=== PATIENT | male | born 1940 | race Caucasian/White ===

== ENCOUNTER 2017-09-26 07:01 | Day surgery (SDC) | payer MEDICARE, OTHER ==
[2017-09-26] MEDS ORDERED: Sodium Chloride 0.9% 1,000 ML IV SCH (07:30)
[2017-09-26] MEDS ORDERED: fentaNYL 100 MCG/2 ML SDV ONE (08:19)
[2017-09-26] MEDS ORDERED: Propofol 200 MG/20 ML SDV ONE (08:19)
[2017-09-26] MEDS ORDERED: Atropine 0.4 MG/ML SDV ONE (08:55)
[2017-09-26] MEDS ORDERED: Glycopyrrolate 0.2 MG/ML 5 ML MDV ONE (08:55)
--- NOTE | 2017-09-26 13:56 | OR ---
DATE OF PROCEDURE: 09/26/2017 PROCEDURE: Colonoscopy. FINDINGS: Normal colonoscopy. PREOPERATIVE DIAGNOSIS: History of colon polyps/screening. POSTOPERATIVE DIAGNOSIS: History of colon polyps/screening. RISKS: Risks, benefits, alternatives, and limitations including but not limited to infection, bleeding, and perforation were explained to the patient and wished to proceed. PROCEDURE IN DETAIL: The patient was placed in a left lateral decubitus position. Digital rectal exam was performed without abnormality. The scope was introduced and advanced atraumatically to the ileocecal valve. The scope was brought back to the ascending, transverse, descending colon and retroflexed. No evidence of old or new blood. No diverticulosis. No masses. No colitis. Mario Milian MD /[id number]
== END 2017-09-26 12:19 | disposition home or self-care (01) ==
LOC: JP.SDS 07:01
PROVIDERS: ATTEND Surgery
DX: Z12.11 Encounter for screening for malignant neoplasm of colon (principal); I10 Essential (primary) hypertension; E78.00 Pure hypercholesterolemia, unspecified; Z98.890 Other specified postprocedural states; Z86.010 Personal history of colon polyps; Z91.030 Bee allergy status
CPT/HCPCS: G0105; J0461; J2704; J3010; J7040

== ENCOUNTER 2021-08-14 12:11 | Emergency (ER) | payer MEDICARE, OTHER ==
[2021-08-14] MEDS ORDERED: Sodium Chloride 0.9% 1,000 ML IV SCH (13:15)
--- NOTE | 2021-08-14 13:16 | EDM.PDOC ---
ED HPI GENERAL MEDICAL PROBLEM - General Chief Complaint: Cardiovascular Problem Stated Complaint: FAINTED ON GOLF COURSE Time Seen by Provider: 08/14/21 12:33 Source of Information: Reports: Patient History Limitations: Reports: No Limitations - History of Present Illness INITIAL COMMENTS - FREE TEXT/NARRATIVE: Sudden [place] No warning. Spontaneously awoke soon after hitting ground. Episode was witnessed by friends and report of seizure. No tongue biting or incontinence. No similar episodes in past. Had "anxiety"episodes this am described as lightheadedness that last seconds. No prior anxiety problems. No chest pain or dyspnea. No N/V, sweating, chills or fever. On BP meds- lisinopril and HLD med statin. - Related Data Allergies Allergy/AdvReac Type Severity Reaction Status Date / Time bee venom protein (honey bee) Allergy Itching Verified 08/14/21 13:05 Home Meds: Home Meds Lisinopril 10 mg PO BEDTIME 09/24/17 [History] Multivit-Minerals/FA/Lycopene [One Daily Men's Health Tablet] 1 tab PO DAILY 09/24/17 [History] Simvastatin [Zocor] 80 mg PO BEDTIME 09/24/17 [History] Past Medical History Cardiovascular History: Reports: Heart Murmur, High Cholesterol, Hypertension Gastrointestinal History: Reports: Colon Polyp Oncologic (Cancer) History: Reports: Basal Cell Carcinoma Dermatologic History: Reports: None - Infectious Disease History Infectious Disease History: Reports: Chicken Pox, Measles, Mumps, Rubella - Past Surgical History HEENT Surgical History: Reports: Other (See Below) Other HEENT Surgeries/Procedures: growth taken off vocal cord Cardiovascular Surgical History: Reports: None GI Surgical History: Reports: Colonoscopy, Polypectomy Oncologic Surgical History: Reports: None Dermatological Surgical History: Reports: Skin Biopsy Social & Family History - Tobacco Use Tobacco Use Status *Q: Never Tobacco User - Caffeine Use Caffeine Use: Reports: None - Alcohol Use Days Per Week of Alcohol Use: 7 Number of Drinks Per Day: 2 Total Drinks Per Week: 14 - Recreational Drug Use Recreational Drug Use: No ED ROS GENERAL - Review of Systems Review Of Systems: See Below Constitutional: Denies: Fever, Chills, Diaphoresis HEENT: Reports: No Symptoms Respiratory: Denies: Shortness of Breath, Cough Cardiovascular: Reports: Lightheadedness, Syncope Endocrine: Denies: Polydypsia, Polyuria : Reports: No Symptoms Musculoskeletal: Reports: No Symptoms Skin: Reports: No Symptoms Neurological: Reports: Dizziness, Syncope. Denies: Headache, Seizure Psychiatric: Reports: Anxiety ED EXAM, GENERAL - Physical Exam Exam: See Below Exam Limited By: No Limitations General Appearance: Alert, WD/WN, No Apparent Distress Ears: Normal External Exam, Normal Canal, Normal TMs Nose: Normal Mucosa Throat/Mouth: Normal Inspection, Normal Lips, Normal Oropharynx Head: Normocephalic Neck: Normal Inspection, Non-Tender, Full Range of Motion. No: Lymphadenopathy (R), Lymphadenopathy (L) Respiratory/Chest: No Respiratory Distress, Lungs Clear, Normal Breath Sounds Cardiovascular: Normal Peripheral Pulses GI/Abdominal: Normal Bowel Sounds, Non-Tender Neurological: Alert, Oriented, Normal Cognition, No Motor/Sensory Deficits Psychiatric: Normal Affect, Normal Mood #1 Interpretation EKG Date: 08/14/21 Time: 13:45 Rhythm: Other (sinus neha) Rate (Beats/Min): 51 Tyro: LAD-Left Tyro Deviation P-Wave: Present QRS: Normal ST-T: Normal QT: Normal Comparison: NA - No Prior EKG (sinus arrest) EKG Interpretation Comments: Sinus neha Course - Vital Signs Text/Narrative:: The patient was evaluated. VSS. NAD. Exam= systolic heart murmur Labs = Normal CBC, BMP, LFT, BNP, Trop, and negative Covid. IMaging= normal CXR and head NCCT EKG = sinus neha, and LAD no acute changes. While in the ER, the patient experience symptoms (lightheadedness) and bradycardia at 20-30 BPM. The patient was given a liter of NS while in the ED. Discussed with Dr Zurita at [facility] who accepted the patient. Transport by [facility]. VSS. Patient and his agree with plan. Last Recorded V/S: Last Vital Signs Temp 36.2 C 08/14/21 13:05 Pulse 48 L 08/14/21 14:22 Resp 10 L 08/14/21 14:22 BP 145/75 H 08/14/21 14:22 Pulse Ox 100 08/14/21 14:22 Orthostatic Blood Pressure [ 163/97 Standing] Orthostatic Blood Pressure [ 154/86 Sitting] Orthostatic Blood Pressure [ 160/82 Supine] - Orders/Labs/Meds Orders: Active Orders 24 hr Category Date Time Status Sodium Chloride 0.9% [Normal Saline] 1,000 ml Med 08/14/21 13:15 Active IV ASDIRECTED EKG 12 Lead [EK] Stat Ther 08/14/21 13:03 Ordered EKG 12 Lead [EK] Stat Ther 08/14/21 13:40 Ordered Medication Orders Sodium Chloride (Normal Saline) 1,000 mls @ 500 mls/hr IV ASDIRECTED RUSS Last Admin: 08/14/21 13:18 Dose: 500 mls/hr Documented by: JOSE MANUEL Labs: Laboratory Tests 08/14/21 08/14/21 08/14/21 Range/Units 13:03 13:03 13:04 WBC 7.7 (4.5-11.0) K/uL RBC 3.90 L (4.30-5.90) M/uL Hgb 12.7 (12.0-15.0) g/dL Hct 38.5 L (40.0-54.0) % MCV 99 H (80-98) fL MCH 33 H (27-31) pg MCHC 33 (32-36) % Plt Count 257 (150-400) K/uL Neut % (Auto) 82.1 H (36-66) % Lymph % (Auto) 12.2 L (24-44) % Harmon % (Auto) 4.8 (2-6) % Eos % (Auto) 0.6 L (2-4) % Baso % (Auto) 0.3 (0-1) % Sodium 136 L (140-148) mmol/L Potassium 4.4 (3.6-5.2) mmol/L Chloride 102 (100-108) mmol/L Carbon Dioxide 25 (21-32) mmol/L Anion Gap 13.4 (5.0-14.0) mmol/L BUN 23 H (7-18) mg/dL Creatinine 0.9 (0.8-1.3) mg/dL Est Cr Clr Drug Dosing 64.39 mL/min Estimated GFR (MDRD) > 60 (>60) Glucose 122 H (74-106) mg/dL Calcium 8.6 (8.5-10.1) mg/dL Total Bilirubin 0.5 (0.2-1.0) mg/dL AST 38 H (15-37) U/L ALT 45 (12-78) U/L Alkaline Phosphatase 56 (46-116) U/L Troponin I < 0.017 (0.000-0.056) ng/mL NT-Pro-B Natriuret Pep 497 H (5-450) pg/mL Total Protein 6.1 L (6.4-8.2) g/dL Albumin 3.3 L (3.4-5.0) g/dL Globulin 2.8 (2.3-3.5) g/dL Albumin/Globulin Ratio 1.2 (1.2-2.2) SARS-CoV-2 RNA (CARITO) (NEGATIVE) 08/14/21 Range/Units 13:08 WBC (4.5-11.0) K/uL RBC (4.30-5.90) M/uL Hgb (12.0-15.0) g/dL Hct (40.0-54.0) % MCV (80-98) fL MCH (27-31) pg MCHC (32-36) % Plt Count (150-400) K/uL Neut % (Auto) (36-66) % Lymph % (Auto) (24-44) % Harmon % (Auto) (2-6) % Eos % (Auto) (2-4) % Baso % (Auto) (0-1) % Sodium (140-148) mmol/L Potassium (3.6-5.2) mmol/L Chloride (100-108) mmol/L Carbon Dioxide (21-32) mmol/L Anion Gap (5.0-14.0) mmol/L BUN (7-18) mg/dL Creatinine (0.8-1.3) mg/dL Est Cr Clr Drug Dosing mL/min Estimated GFR (MDRD) (>60) Glucose (74-106) mg/dL Calcium (8.5-10.1) mg/dL Total Bilirubin (0.2-1.0) mg/dL AST (15-37) U/L ALT (12-78) U/L Alkaline Phosphatase (46-116) U/L Troponin I (0.000-0.056) ng/mL NT-Pro-B Natriuret Pep (5-450) pg/mL Total Protein (6.4-8.2) g/dL Albumin (3.4-5.0) g/dL Globulin (2.3-3.5) g/dL Albumin/Globulin Ratio (1.2-2.2) SARS-CoV-2 RNA (CARITO) Negative (NEGATIVE) Meds: Medications Generic Name Dose Route Start Last Admin Trade Name Freq PRN Reason Stop Dose Admin Sodium Chloride 1,000 mls @ 500 mls/hr 08/14/21 13:15 08/14/21 13:18 Normal Saline IV 500 mls/hr ASDIRECTED RUSS Administration Departure - Departure Time of Disposition: 15:30 Disposition: DC/Tfer to [facility] 02 Reason for Transfer *Q: Other (Needs higher level of care) Condition: Fair Clinical Impression: Sinus bradycardia Referrals: Adrien Hu MD [Primary Care Provider] - Forms: ED Department Discharge Sepsis Event Note (ED) - Evaluation Sepsis Screening Result: No Definite Risk - Focused Exam Vital Signs: Vital Signs Temp Pulse Resp BP Pulse Ox 08/14/21 14:22 48 L 10 L 145/75 H 100 08/14/21 13:22 53 L 17 145/80 H 100 08/14/21 13:05 36.2 C 53 L 11 L 160/82 H 98 08/14/21 12:29 36.2 C 53 L 11 L 160/82 H 98 - My Orders Last 24 Hours: My Active Orders 08/14/21 13:03 EKG 12 Lead [EK] Stat 08/14/21 13:15 Sodium Chloride 0.9% [Normal Saline] 1,000 ml IV ASDIRECTED 08/14/21 13:40 EKG 12 Lead [EK] Stat - Assessment/Plan Last 24 Hours: My Active Orders 08/14/21 13:03 EKG 12 Lead [EK] Stat 08/14/21 13:15 Sodium Chloride 0.9% [Normal Saline] 1,000 ml IV ASDIRECTED 08/14/21 13:40 EKG 12 Lead [EK] Stat
--- NOTE | 2021-08-14 14:30 | CT ---
Head wo Cont CLINICAL HISTORY: Syncope COMPARISON: None TECHNIQUE: Transverse scans were obtained from the base of the skull through the vertex without IV contrast on a multislice, multidetector CT scanner. Auto dosage reduction and iterative reconstruction techniques employed. FINDINGS: No focal abnormal parenchymal density is identified. There is no mass effect, hemorrhage, or extraaxial collection. There is some lucency in the periventricular and subcortical white matter. The basal cisterns and sulci over the convexities are prominent. The ventricles are mildly prominent. IMPRESSION: No acute intracranial process identified Age-related atrophy Chronic ischemic white matter changes
--- NOTE | 2021-08-14 14:40 | CR ---
CHEST: Portable 08/14/2021 at 2:04 PM CLINICAL HISTORY:Dyspnea COMPARISON:None FINDINGS: The heart size, pulmonary vascularity and hilar structures are normal. No infiltrate effusion or pneumothorax is seen. There are atherosclerotic changes in the aorta. IMPRESSION: No acute cardiopulmonary process.
== END 2021-08-14 17:10 ==
LOC: JP.ED 12:11
DX: R00.1 Bradycardia, unspecified (principal); E78.00 Pure hypercholesterolemia, unspecified; I10 Essential (primary) hypertension; Z91.030 Bee allergy status; Z79.899 Other long term (current) drug therapy; Z20.822 Contact with and (suspected) exposure to COVID-19
CPT/HCPCS: 36415; 70450; 71045; 80053; 83880; 84484; 85025; 93005; 99285; J7030; U0002